=== PATIENT | female | born 1960 | race Two or more races ===

== ENCOUNTER 2017-04-02 07:33 | Emergency (ER) | payer BC ==
[2017-04-02 07:44] VITALS: BP 120/75
--- NOTE | 2017-04-02 08:07 | UC ---
vivek Nicolas Timothy, scribed for Brenda Jarquin MD on 04/02/17 at 0805 . Respiratory Complaint HPI - HPI Summary HPI Summary: Manuela Zelaya is a 56 yo female presenting to [facility] with productive cough with green sputum, FINLEY, and subjective fever since November 2016. She states she has also had head/chest congestion since November. She states that sometimes her chest congestion instigates the cough, but sometimes she feels a post-nasal drip. All of these sx have been intermittent, but they keep coming back so "I gave up and decided I needed to come in." She has not seen her PCP regarding her Sx. 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 She also notes that there has been an outbreak of mono at the school, which she has had in the past. She states she has self-medicated with ibuprofen yesterday with mild relief. Pt has not take any other cough or cold medication. She is not on any current medications. She denies any PMHx, but is a former smoker. Pt medication list reviewed this visit. - History of Current Complaint Stated Complaint: COUGH Time Seen by Provider: 04/02/17 07:59 Hx Obtained From: Patient Onset/Duration: Gradual Onset, Lasting Weeks, Still Present Severity Initially: Moderate Severity Currently: Moderate Character: Cough: Productive Associated Signs And Symptoms: Positive: Fever - subjective, Nasal Congestion - Allergies/Home Medications Allergies/Adverse Reactions: Allergies Allergy/AdvReac Type Severity Reaction Status Date / Time No Known Allergies Allergy Verified 04/02/17 07:44 Home Medications: Home Medications Calcium Carbonate [Calcium] 500 mg PO 04/02/17 [History] Ibuprofen [Advil] 400 mg PO 04/02/17 [History] PMH/Surg Hx/FS Hx/Imm Hx Previously Healthy: Yes - Surgical History Surgical History: None - Social History Occupation: Employed Part-time Lives: With Family Alcohol Use: Daily Alcohol Amount: "a couple" Substance Use Type: None Smoking Status (MU): Former Smoker Review of Systems Constitutional: Fever - subjective Skin: Negative Eyes: Negative ENT: Sore Throat Respiratory: Cough Cardiovascular: Negative Gastrointestinal: Negative Genitourinary: Negative Motor: Negative Neurovascular: Negative Musculoskeletal: Negative Neurological: Negative Psychological: Negative All Other Systems Reviewed And Are Negative: Yes Physical Exam Triage Information Reviewed: Yes Appearance: Well-Appearing, No Pain Distress, Well-Nourished Vital Signs: Initial Vital Signs Temp 98.4 F 04/02/17 07:38 Pulse 64 04/02/17 07:38 Resp 18 04/02/17 07:38 BP 120/75 04/02/17 07:38 Pulse Ox 100 04/02/17 07:38 Vital Signs Reviewed: Yes Eye Exam: Normal ENT Exam: Normal ENT: Positive: Normal ENT inspection. Negative: Hearing grossly normal Neck exam: Normal Neck: Positive: Supple, Nontender, No Lymphadenopathy Respiratory Exam: Normal Respiratory: Positive: Chest non-tender, Lungs clear, Normal breath sounds Cardiovascular Exam: Normal Cardiovascular: Positive: RRR, No Murmur Abdominal Exam: Normal Abdomen Description: Positive: Nontender, No Organomegaly, Soft Bowel Sounds: Positive: Present Musculoskeletal Exam: Normal Neurological Exam: Normal Neurological: Positive: Alert Psychological Exam: Normal Skin Exam: Normal UC Diagnostic Evaluation - Laboratory O2 Sat by Pulse Oximetry: 100 - Radiology Xray Interpretation: No Acute Changes - IMPRESSION: NO ACTIVE CARDIOPULMONARY DISEASE. Radiology Interpretation Completed By: Radiologist Re-Evaluation - Re-Evaluation First Eval Re-Evaluation Time: 08:55 Change: Unchanged Comment: Discussed imaging study results with Pt, as well as course of Tx. Pt is agreeable to current course of Tx and had her questions answered to her satisfaction. Respiratory Course/Dx - Course Course Of Treatment: Manuela Zelaya is a 56 yo female presenting to [facility] with intermittent cough, FINLEY, and subjective fever since November 2016. She was counseled that due to her Hx of tobacco use, a CXR is recommended to view her lungs. She is agreeable to this plan. Her CXR suggests no active cardiopulmonary disease. After clinical examination and review fo her imaging study, she will be discharged home with appropriate instructions. - Differential Dx/Diagnosis Provider Diagnoses: bronchitis Discharge - Discharge Plan Condition: Stable Disposition: HOME Prescriptions: DOXYcycline CAP(*) [DOXYcycline 100MG CAP(*)] 100 mg PO BID #20 cap Fluticasone NASAL SPRAY 50MCG* [Flonase NASAL SPRAY 50MCG*] 1 spray BOTH NARES DAILY #1 btl Patient Education Materials: Acute Bronchitis (ED) Referrals: [facility] [place] [facility] [Outside] - 2 Days Additional Instructions: - Stay well hydrated. Drink plenty of non-caffinated, non-carbonated beverages - take antibiotics as prescribed until gone - use nasal spray as instructed - it is recommended you take a decongestant such as Claritin-D, john-D, Zyrtec, Sudafed - you have been given the contact information for the physician referral line, they may assist you in finding a new primary care provider - After you have been on antibiotics for 2 days - change your toothbrush and your pillowcase. These infections are spread by secretions - do NOT share eating or drinking utensils - clean items you share with other people such as cell phones, computer mouse, TV remote, computer tablets, etc Please follow up with the primary care physician provided regarding your visit to urgent care today. Return to urgent care with any new or recurring symptoms. The documentation as recorded by the vivek mendez Timothy accurately reflects the service I personally performed and the decisions made by me, Brenda Jarquin MD.
--- NOTE | 2017-04-02 08:47 | RAD ---
HISTORY: Cough COMPARISONS: None VIEWS: 2: Frontal dual-energy and lateral views of the chest. FINDINGS: CARDIOMEDIASTINAL SILHOUETTE: The cardiomediastinal silhouette is normal. KIM: The kim are normal. PLEURA: The costophrenic angles are sharp. No pleural abnormalities are noted. LUNG PARENCHYMA: The lungs are clear. ABDOMEN: The upper abdomen is clear. There is no subphrenic gas. BONES AND SOFT TISSUES: No bone or soft tissue abnormalities are noted. OTHER: None. IMPRESSION: NO ACTIVE CARDIOPULMONARY DISEASE.
== END 2017-04-02 09:15 | disposition home or self-care (01) ==
LOC: UCEAST 07:33
DX: J40 Bronchitis, not specified as acute or chronic (principal); Z87.891 Personal history of nicotine dependence
CPT/HCPCS: 71020; 99212; G0463